=== PATIENT | female | born 1995 | race Two or more races ===

== ENCOUNTER 2019-08-11 13:18 | Emergency (ER) | payer MEDICAID, OTHER ==
[~2019-08-11] VITALS: Ht 165.1 cm; Wt 54.4 kg
[2019-08-11] MEDS ORDERED: SODIUM CHLORIDE 0.9% 1,000 ML IVB ONE (13:32)
[2019-08-11 14:19] LABS: Basophils # (auto) 0 uL; Basophils % (auto) 0.1 % (0.0-2.0); Eosinophils # (auto) 0 uL; Hematocrit 39.8 % (36.0-46.0); Hemoglobin 13.9 g/dL (12.2-16.2); Lymphocytes # (auto) 0.8 uL; Lymphocytes % (auto) 4.7 % (10.0-50.0); Mean Corpuscular Hemoglobin 28.6 pg (28.0-32.0); Mean Corpuscular Hgb Conc. 34.8 g/dL (32.0-36.0); Mean Corpuscular Volume 82.1 fL (80.0-100.0); Monocytes # (auto) 0.9 uL; Monocytes % (auto) 5.6 % (0.0-12.0); Neutrophils # (auto) 15.1 uL; Neutrophils % (auto) 89.6 % (37.0-80.0); Nucleated Red Blood Cells % 0.1 %; Platelet Count (auto) 210 10^3/uL (140-450); Red Blood Cells 4.85 10^6/uL (4.0-5.20); Red Cell Distribution Width 12.9 % (11.8-14.3); White Blood Cell 16.9 10^3/uL (4.4-10.8)
[2019-08-11 14:46] LABS: Albumin 4.5 g/dL (3.4-5.0); Anion Gap 9 (5-15); BUN/Creatinine Ratio 13.5; Blood Alcohol < 3.0 mg/dL (0-5); Blood Urea Nitrogen 13 mg/dL (7-18); Calcium 9.3 mg/dL (8.5-10.1); Carbon Dioxide 24 mmol/L (21-32); Chloride 104 mmol/L (98-107); GFR African American 94 mL/min; GFR Non-African American 78 mL/min; Glucose 118 mg/dL (74-106); Potassium 3.6 mmol/L (3.5-5.1); Sodium 137 mmol/L (136-145)
[2019-08-11 14:57] LABS: Alanine Aminotransferase 14 U/L (13-56); Alkaline Phosphatase 67 U/L (45-117); Aspartate Aminotransferase 20 U/L (15-37); Bilirubin, Total 1.5 mg/dL (0.2-1.0); Total Protein 7.8 g/dL (6.4-8.2)
[2019-08-11 15:12] LABS: Acetaminophen < 2.0 ug/mL (10-30); Salicylate < 0.2 mg/dL (2.8-20.0)
[2019-08-11 15:45] LABS: Urine Bacteria FEW /hpf (None Seen); Urine Blood TRACE /uL (Negative); Urine Mucus FEW (None Seen); Urine Specific Gravity 1.009 (1.001-1.035); Urine WBC 10 /hpf (0 - 5)
[2019-08-11 15:56] LABS: Alcohol, Urine < 3.0 mg/dL (0-5); Amphetamine Screen, Urine NEGATIVE (NEGATIVE); Barbiturate Scree,Urine NEGATIVE (NEGATIVE); Benzodiazephine Screen, Urine POSITIVE (NEGATIVE); Cannabinoid Screen, Urine NEGATIVE (NEGATIVE); Cocaine Screen, Urine NEGATIVE (NEGATIVE); Phencyclidine Screen, Urine NEGATIVE (NEGATIVE)
[2019-08-11 16:04] LABS: Opiate Scree,Urine NEGATIVE (NEGATIVE)
[2019-08-11] MEDS ORDERED: SODIUM CHLORIDE 0.9% 1,000 ML IV ONE ×2 (16:18)
[2019-08-11] MEDS ORDERED: cefTRIAXone 1GM/50ML D5W 50 ML IV ONE (16:30)
[2019-08-14 17:00] VITALS: BP 126/78
== END 2019-08-14 17:15 | disposition short-term general hospital (02) ==
LOC: EDBD 13:18 → ER 13:18
DX: E86.0 Dehydration (principal); R45.851 Suicidal ideations; F19.10 Other psychoactive substance abuse, uncomplicated; F32.9 Major depressive disorder, single episode, unspecified
CPT/HCPCS: 36415; 71045; 80053; 80307; 80320; 80329; 81001; 81025; 85025; 93005; 96361; 96365; 99285; J0696; J7030

== ENCOUNTER 2022-12-26 10:22 | Observation (INO) | payer MEDICAID ==
[~2022-12-26] VITALS: Ht 157.5 cm; Wt 58.7 kg
[2022-12-26 10:35] VITALS: BP 131/86
[2022-12-26] MEDS ORDERED: PREN-96 PO (11:39)
[2022-12-26] MEDS ORDERED: DOXY10TA OR (11:41)
== END 2022-12-26 11:57 | disposition home or self-care (01) ==
LOC: ER 10:22 → LDRP 10:47
PROVIDERS: ADMIT Obstetrics & Gynecology; ATTEND Obstetrics & Gynecology
DX: O36.8120 Decreased fetal movements, second trimester, not applicable or unspecified (principal); Z3A.25 25 weeks gestation of pregnancy; Z90.49 Acquired absence of other specified parts of digestive tract
CPT/HCPCS: 59025; 81002; 94760; 99284; G0378

== ENCOUNTER 2024-10-23 10:03 | Emergency (ER) | payer MEDICAID, OTHER ==
[~2024-10-23] VITALS: Ht 157.5 cm; Wt 48.0 kg
[~2024-10-23 10:03] MED LIST: DOXY10TA OR; PREN-96 PO
[2024-10-23 10:30] VITALS: BP 107/80; PULSE 99; RESP 16; O2SAT 100
--- NOTE | 2024-10-23 11:35 | ED.PDOC ---
GI ASSESSMENT HPI Comments 29 Y F, with Hx of appendectomy, presents to the ED with CC of ABD pain. Patient states that she has been experiencing epigastric pain since early last night, with associated symptoms of N/V/D after consuming tacos. Patient relays that she went to [facility] urgent care, this morning, for symptoms and was instructed to go to the ER for further workup. Patient's LMP was 10/19/24. Patient denies any PMHX or current medications. Patient denies any fever, chills, bodyaches, nasal congestion, or cough. Chief Complaint: Abdominal Pain Time Seen by MD: 11:10 Primary Care Provider: CONSUELO Reviewed Notes: Nurses Notes, Medications, Allergies Allergies: Coded Allergies: NO KNOWN ALLERGIES (Unverified , 08/11/19) Home Meds Reported Medications Doxylamine-Pyridoxine (DICLEGIS) 1 Tab Tab, 1 TAB OR, TAB 12/26/22 Vit W/ Ferrous Fumara ( One Daily) Daily Tab, 1 TAB PO DAILY, #90 TAB 3 Refills 12/26/22 Information Source: Patient Mode of Arrival: Ambulatory Timing: Hours Duration: Since onset Vomitus: Watery Stool: Watery Severity: Moderate Pain Location: Epigastric Modifying Factors: Nothing Associated sign and symptoms: Nausea, Vomiting, Diarrhea Past Medical History PAST MEDICAL HISTORY: Depression Surgical History: Appendectomy EFFICIENCY MINER History: Denies all EFFICIENCY MINER Hx Family History Family History: Reviewed,noncontributory to illness Social History Smoker: Non-Smoker Alcohol: Denies ETOH Use Drugs: Denies Drug Use Lives In: Home Gastrointestinal: reports: abdominal pain, diarrhea, nausea, vomiting All Other Systems: Reviewed and Negative (negative unless otherwise stated in HPI) Physical Exam General Appearance: Mild Distress, Thin HEENT: Normal ENT Inspection, PERRL/EOMI Neck: Full Range of Motion, Non-Tender, Normal, Normal Inspection Respiratory: Chest Non-Tender, Lungs Clear, No Accessory Muscle Use, No Respiratory Distress, Normal Breath Sounds Cardiovascular: No Edema, No JVD, No Murmur, No Gallop, Normal Peripheral Pulses, Regular Rate/Rhythm Breast Exam: Deferred Gastrointestinal: Epigastric, No Organomegaly, No Pulsatile Mass, Normal Bowel Sounds, Tenderness Genitalia: Deferred Pelvic: Deferred Rectal: Deferred Extremities: No calf tenderness, Normal capillary refill, Normal inspection, Normal range of motion, Non-tender, No pedal edema Neurologic: Alert, slip laster II-XII nml as Tested, No Motor Deficits, Normal Affect, Normal Mood, No Sensory Deficits Cerebellar Function: Normal Reflexes: Normal Skin: Dry, Normal Color, Warm Lymphatic: No Adenopathy Was a procedure done? Was a procedure done?: No GI differential Dx Differential Diagnosis: Cholangitis, Cholecystitis, Gastritis/PUD, Gastroenteritis, UTI, Dehydration, Electrolyte Imbalance, Food Poisoning, , Viral, Other (cholelithiasis ) X-Ray, Labs, Meds, VS Vital Signs Date Time Temp Pulse Resp B/P (MAP) Pulse Ox O2 Delivery O2 Flow Rate FiO2 10/23/24 10:30 97.9 99 16 107/80 (89) 100 Lab Test 10/23/24 10:28 Range/Units Urine Color Yellow Yellow Urine Clarity Ex.turbid Clear Urine pH 5.5 5.0-9.0 Urine Specific [place] 1.040 H 1.001-1.035 Urine Protein 1+ H Negative Urine Ketones 2+ H Negative Urine Blood 2+ H Negative /uL Urine Nitrite Negative Negative Urine Bilirubin Negative Negative Urine Urobilinogen Normal Negative mg/dL Urine Leukocyte Esterase 1+ Negative /uL Urine RBC 12 0 - 4 /hpf Urine WBC 3 0 - 5 /hpf Urine WBC Clumps Present None Seen /hpf Urine Squamous Epithelial Cells Mod <5 /hpf Urine Amorphous Crystals Few None Seen /hpf Urine Bacteria None seen None Seen /hpf Urine Mucus Few None Seen Urine Glucose Normal Normal mg/dL X-Ray, Labs, Meds, VS Comment Course in the emergency department eventful patient came in because of abdominal cramps back pain nausea vomiting and diarrhea she ate tacos yesterday blood pressure 107/80 Urine shows 1+ leukocyte esterase 2+ blood and white BC cramps Patient was hydrated She will be discharged home to follow up with her PCP Time of 1ST Reevaluation: 11:40 Reevaluation 1ST: Unchanged Time of 2ND Reevaluation: 13:33 Reevaluation 2ND: Improved Consultation: PCP Patient Education/Counseling: Diagnosis, Treatment, Prognosis, Need For Follow Up Family Education/Counseling: Diagnosis, Treatment, Prognosis, Need For Follow Up, No Family Present Departure 1 Departure Time of Disposition: 13:34 Impression: Primary Impression: Gastroenteritis due to food toxin Disposition: 01 HOME / SELF CARE / HOMELESS Condition: Fair Additional Instructions: Clear to full liquid diet for the next 48 hours and follow up with your PCP e-Prescriptions Prochlorperazine Maleate (Compazine) 10 Mg Tb 1 TAB PO Q6HR for 5 Days, #20 TAB 3 Refills Prov: KAYLEIGH LIN MD 10/23/24 Nitrofurantoin Monohydrate Mac (Macrobid) 100 Mg Cap 100 MG PO BID for 7 Days, #14 CAP Prov: KAYLEIGH LIN MD 10/23/24 Discharged With: Self Critical Care Note Critical Care Time?: No Stability Stability form required: No Heart Score Heart Score: Heart Score Response (Comments) Value History N/A 0 EKG N/A 0 Age <45 0 Risk Factors No known risk factors 0 Troponin N/A 0 Total 0 I personally scribed for KAYLEIGH LIN MD ([email or web address]) on 10/23/24 at 11:35. Electronically submitted by Bill Lopez ([email or web address]). I personally scribed for KAYLEIGH LIN MD ([email or web address]) on 10/23/24 at 11:52. Electronically submitted by Bill Lopez ([email or web address]). KAYLEIGH LIN MD Oct 23, 2024 11:35
[2024-10-23] MEDS ORDERED: DONNATAL 5ml ORAL Elix (BELLADONNA ALK-PHENOBARB) PO ONE (12:00)
[2024-10-23] MEDS ORDERED: ONDANSETRON HCL 4 MG/2 ML VIAL IV ONE (12:00)
[2024-10-23] MEDS ORDERED: MAALOX PLUS or MAALOX 30 ML PO ONE (12:00)
[2024-10-23] MEDS ORDERED: SODIUM CHLORIDE 0.9% 1,000 ML IVB ONE (12:00)
[2024-10-23] MEDS ORDERED: PANTOPRAZOLE 40 MG TAB PO ONE (12:00)
[2024-10-23 12:06] LABS: Urine Bacteria None Seen /hpf (None Seen)
[2024-10-23 12:17] LABS: Urine Amorphous Crystal FEW /hpf (None Seen); Urine Blood 2+ /uL (Negative); Urine Clarity Ex.Turbid (Clear); Urine Mucus FEW (None Seen); Urine Protein, UAD 1+ (Negative); Urine Urobilinogen Normal (Negative); Urine WBC 3 /hpf (0 - 5); Urine WBC Clumps PRESENT /hpf (None Seen); Urine pH 5.5 (5.0-9.0)
[2024-10-23 12:32] LABS: Urine Color Yellow (Yellow)
[2024-10-23] MEDS ORDERED: NITR-87 PO (13:37)
[2024-10-23] MEDS ORDERED: PROC10TA6 PO (13:37)
== END 2024-10-23 13:47 | disposition left against medical advice (07) ==
LOC: ER 10:03
DX: A05.9 Bacterial foodborne intoxication, unspecified (principal); F32.A Depression, unspecified; Z90.49 Acquired absence of other specified parts of digestive tract; Z79.899 Other long term (current) drug therapy
CPT/HCPCS: 81001